=== PATIENT | female | born 1980 | race Caucasian/White ===

== ENCOUNTER 2021-12-19 12:35 | Outpatient (REF) | payer OTHER, SELFPAY ==
[2021-12-20 00:46] LABS: COVID-19 RT-PCR UVMMC Result Negative (Negative)
== END 2021-12-19 12:36 | disposition home or self-care (01) ==
LOC: LBN 12:35
PROVIDERS: PCP Student in an Organized Health Care Education/Training Program; Visit Provider Obstetrics & Gynecology
DX: Z20.822 Contact with and (suspected) exposure to COVID-19 (principal)
CPT/HCPCS: U0003

== ENCOUNTER 2022-01-09 01:54 | Outpatient (CLI) | payer OTHER, SELFPAY | END 2022-01-09 01:55 | disposition home or self-care (01) | LOC: LBO 01:54 | PROVIDERS: PCP Student in an Organized Health Care Education/Training Program; Visit Provider Student in an Organized Health Care Education/Training Program ==

== ENCOUNTER 2022-01-14 01:48 | Outpatient (CLI) | payer OTHER, SELFPAY ==
[2022-01-14 12:51] LABS: HCT 39.4 % (36.0-46.0); HGB 12.7 g/dL (11.2-15.7); MCH 30.3 pg (27.0-33.0); MCHC 32.2 % (32.0-36.0); MPV 10.4 fL (8.0-11.0); Platelet Count 269 10^3/uL (130-400); RBC 4.19 10^6/uL (3.93-5.22); RDW 12.8 % (11.7-14.6); RDW-SD 44.3 fL; WBC 6.34 10^3/uL (4.4-10.8)
[2022-01-14 13:57] LABS: ALT 23 U/L (14-59); AST 14 U/L (15-37); Albumin 4.3 g/dL (3.4-5.0); Alkaline Phosphatase 67 U/L (46-116); Anion Gap 7.3 mmol/L (3-11); BUN 15 mg/dL (7-18); Bilirubin, Total 0.2 mg/dL (0.2-1.0); CO2 29.7 mmol/L (21.0-32.0); CREATININE 0.9 mg/dL (0.55-1.02); Calcium 9.2 mg/dL (8.5-10.1); Calculated LDL 125 mg/dL (<100); Chloride 103 mmol/L (98-107); Cholesterol 200 mg/dL (<200); Glucose 98 mg/dL (74-106); HDL Cholesterol 58 mg/dL (40-60); Potassium 4.2 mmol/L (3.5-5.1); Sodium 140 mmol/L (136-145); TSH (W/Ref FT4) 1.46 uIU/mL (0.36-3.74); Total Protein 7.3 g/dL (6.4-8.2); Triglyceride 89 mg/dL (<150)
== END 2022-01-14 01:49 | disposition home or self-care (01) ==
LOC: LBO 01:48
PROVIDERS: PCP Student in an Organized Health Care Education/Training Program; Visit Provider Student in an Organized Health Care Education/Training Program
DX: D64.9 Anemia, unspecified (principal); E86.0 Dehydration; Z13.220 Encounter for screening for lipoid disorders; Z83.49 Family history of other endocrine, nutritional and metabolic diseases
CPT/HCPCS: 36415; 80053; 80061; 85027; 84443

== ENCOUNTER 2022-01-23 00:14 | Outpatient (CLI) | payer OTHER, SELFPAY ==
--- NOTE | 2022-01-23 07:45 | DI.MAMMO_ITS ---
Exam(s) MAMMO SCREENING EXAM: MAMMO SCREENING CLINICAL HISTORY: screening,z12.39, TECHNIQUE: Mammograms were interpreted according to the usual protocol including computer analysis w [employer] CAD system, tomosynthesis and C-view imaging. COMPARISON: None. Baseline examination. FINDINGS: The breasts are composed of scattered fibroglandular densities, Breast Density category B. No suspicious masses or suspicious microcalcifications are seen. No skin thickening or abnormal axillary lymph nodes are seen. IMPRESSION: BI-RADS Category 1, Negative mammogram Yearly screening mammography is recommended. Breast Density - Category B, scattered fibroglandular densities. A negative radiographic report should not delay biopsy if a dominant or clinically suspicious mass is present. Up to ten percent of cancers are not identified on mammography. A negative report may reinforce clinical impression. Adenosis and dense breasts may obscure an underlying neoplasm. False positive reports average 6 to 10%. Patient will receive a letter notifying them of these results.
== END 2022-01-23 00:34 ==
PROVIDERS: PCP Student in an Organized Health Care Education/Training Program; Visit Provider Student in an Organized Health Care Education/Training Program
DX: Z12.31 Encounter for screening mammogram for malignant neoplasm of breast (principal)
CPT/HCPCS: 77063; 77067

== ENCOUNTER 2022-06-07 10:49 | Outpatient (REF) | payer OTHER, SELFPAY ==
[2022-06-07 09:43] LABS: Source Nasal/Nares
[2022-06-07 10:41] LABS: COVID-19 PCR Negative (Negative)
== END 2022-06-07 10:50 | disposition home or self-care (01) ==
LOC: LBN 10:49
PROVIDERS: PCP Student in an Organized Health Care Education/Training Program; Visit Provider Obstetrics & Gynecology
DX: Z20.822 Contact with and (suspected) exposure to COVID-19 (principal)
CPT/HCPCS: 87635

== ENCOUNTER 2022-07-03 08:17 | Outpatient (CLI) | payer OTHER, SELFPAY ==
[2022-07-03 08:25] LABS: Source Nasal/Nares
[2022-07-03 09:21] LABS: COVID-19 PCR Negative (Negative)
== END 2022-07-03 08:18 | disposition home or self-care (01) ==
LOC: LBO 08:18
PROVIDERS: PCP Student in an Organized Health Care Education/Training Program; Visit Provider Obstetrics & Gynecology
DX: Z20.822 Contact with and (suspected) exposure to COVID-19 (principal)
CPT/HCPCS: 87635

== ENCOUNTER → 2022-07-10 12:57 | Outpatient (CLI) | payer OTHER, SELFPAY ==
--- NOTE | 2022-07-10 10:00 | DI.RAD_ITS ---
Exam(s) XR SHOULDER LT COMPLETE 2+V EXAM: XR SHOULDER LT COMPLETE 2+V CLINICAL HISTORY: Fall Left Shoulder Injury - PAIN - M25.512 TECHNIQUE: COMPARISON: No exams were available for comparison FINDINGS: Five views were obtained. There is a lucency projected through the body of the scapula which appears to represent a nondisplaced fracture. No additional fracture, no evidence of dislocation. IMPRESSION: RADIATION DOSE DELIVERED: Total DLP
== END ==
PROVIDERS: PCP Student in an Organized Health Care Education/Training Program; Visit Provider Physician Assistant
DX: S42.192A Fracture of other part of scapula, left shoulder, initial encounter for closed fracture (principal); W19.XXXA Unspecified fall, initial encounter
CPT/HCPCS: 73030

== ENCOUNTER 2022-07-31 08:58 | Outpatient (CLI) | payer OTHER, SELFPAY ==
--- NOTE | 2022-07-31 08:30 | DI.RAD_ITS ---
Exam(s) XR SHOULDER LT 1V EXAM: XR SHOULDER LT 1V CLINICAL HISTORY: left shoulder f/u. TECHNIQUE: 2D digital imaging was performed. COMPARISON: CR XR SHOULDER LT COMPLETE 2+V from 07/10/2022 FINDINGS: Single frontal view. No evidence of fracture or dislocation nor diminution of the subacromial space and there are no abnor mal soft tissue calcifications. Bone density is normal. No osseous lesions. No osteophytes. No ob vious degenerative changes in the glenohumeral and AC joints. Ipsilateral clavicle and acromion are intact. Visualized scapula unremarkable. Adjacent ribs unremarkable. Bone density is normal. No osseous lesions. IMPRESSION: No significant radiograph findings on this frontal AP external rotation view of the left shoulder. DATA REPOSITORY: RADIATION DOSE DELIVERED:
== END 2022-07-31 08:59 | disposition home or self-care (01) ==
LOC: DIORS 08:58
PROVIDERS: PCP Student in an Organized Health Care Education/Training Program; Referring Provider Student in an Organized Health Care Education/Training Program; Visit Provider Student in an Organized Health Care Education/Training Program
DX: S42.115D Nondisplaced fracture of body of scapula, left shoulder, subsequent encounter for fracture with routine healing (principal)
CPT/HCPCS: 73020; 73030

== ENCOUNTER 2022-10-09 08:23 | Outpatient (CLI) | payer OTHER, SELFPAY ==
[2022-10-09 09:00] LABS: Source Nasal/Nares
[2022-10-09 10:23] LABS: COVID-19 PCR Negative (Negative)
== END 2022-10-09 08:24 | disposition home or self-care (01) ==
LOC: LBO 08:23
PROVIDERS: PCP Student in an Organized Health Care Education/Training Program; Visit Provider Obstetrics & Gynecology
DX: Z20.822 Contact with and (suspected) exposure to COVID-19 (principal)
CPT/HCPCS: 87635

== ENCOUNTER 2022-11-19 16:21 | Outpatient (REF) | payer OTHER, SELFPAY ==
[2022-11-19 11:01] LABS: COVID-19 PCR Negative (Negative); Influenza A PCR Negative (Negative); Influenza B PCR Negative (Negative); RSV PCR Negative (Negative)
[2022-11-19 11:05] LABS: Source Nasopharynx
== END 2022-11-19 16:22 | disposition home or self-care (01) ==
LOC: LBN 16:21
PROVIDERS: PCP Student in an Organized Health Care Education/Training Program; Visit Provider Obstetrics & Gynecology
DX: Z20.822 Contact with and (suspected) exposure to COVID-19 (principal)
CPT/HCPCS: 87637

== ENCOUNTER 2023-01-20 12:38 | Outpatient (REF) | payer OTHER, SELFPAY ==
--- NOTE | 2023-01-20 12:15 | PAPFT_PTH ---
PATIENT: Fidelina Wise LOC: [facility] U#:[id number] AGE/SX: 42/F ROOM: RE01/20/[address]: Alessia Schulz NP : 1980 BED: DIS: 01/20/2023 SPEC #: [id number] RECD: 01/20/23 17:46 STATUS: BART BARBER #: [id number] YUMI: 01/20/23 12:[address]: Alessia Schulz NP DEPT: [facility] Cytology RECD BY: Mary Cruz ENTERED: 01/20/23 17:46 SP TYPE: PAPFT OTHR DR: Rosa Dasilva, DO Tissues: 1 - CX/ENDOCX FOR PAP SMEARS Procedures: PAP THIN PREP/[facility] Screening HPV DNA PROBE Comments: [id number]
== END 2023-01-20 12:39 | disposition home or self-care (01) ==
LOC: LBN 12:38
PROVIDERS: PCP Student in an Organized Health Care Education/Training Program; Visit Provider Nurse Practitioner Women's Health
DX: Z12.4 Encounter for screening for malignant neoplasm of cervix (principal); Z11.51 Encounter for screening for human papillomavirus (HPV)
CPT/HCPCS: 88142; 87624

== ENCOUNTER 2023-02-07 02:44 | Outpatient (CLI) | payer OTHER, SELFPAY ==
[2023-02-07 08:34] LABS: BUN 13 mg/dL (7-18); CREATININE 0.9 mg/dL (0.55-1.02); Calcium 9.4 mg/dL (8.5-10.1); Calculated LDL 125 mg/dL (<100); Chloride 103 mmol/L (98-107); Cholesterol 200 mg/dL (<200); Estimated GFR 82.37 (mL/min/1.73m2); Glucose 94 mg/dL (74-106); HDL Cholesterol 65 mg/dL (40-60); Sodium 140 mmol/L (136-145); Triglyceride 53 mg/dL (<150)
== END 2023-02-07 02:45 | disposition home or self-care (01) ==
LOC: LBO 02:45
PROVIDERS: PCP Student in an Organized Health Care Education/Training Program; Visit Provider Student in an Organized Health Care Education/Training Program
DX: Z13.220 Encounter for screening for lipoid disorders (principal); E86.0 Dehydration; R63.8 Other symptoms and signs concerning food and fluid intake
CPT/HCPCS: 36415; 80048; 80061

== ENCOUNTER → 2024-01-08 00:31 | Outpatient (CLI) | payer OTHER, SELFPAY ==
--- NOTE | 2024-01-08 | DI.MAMMO_ITS ---
Exam(s) MAMMO SCREENING EXAM: MAMMO SCREENING CLINICAL HISTORY: Z12.39 screening TECHNIQUE: Mammograms were interpreted according to the usual protocol including computer analysis w [employer] CAD system, tomosynthesis and C-view imaging. COMPARISON: 2021 FINDINGS: The breasts are composed of scattered fibroglandular densities, Breast Density category B. No suspicious masses or suspicious microcalcifications are seen. No skin thickening or abnormal axillary lymph nodes are seen. There has been no significant change from prior exams. IMPRESSION: BI-RADS Category 1, Negative mammogram Yearly screening mammography is recommended. Breast Density - Category B, scattered fibroglandular densities. A negative radiographic report should not delay biopsy if a dominant or clinically suspicious mass is present. Up to ten percent of cancers are not identified on mammography. A negative report may reinforce clinical impression. Adenosis and dense breasts may obscure an underlying neoplasm. False positive reports average 6 to 10%. Patient will receive a letter notifying them of these results.
== END ==
PROVIDERS: PCP Student in an Organized Health Care Education/Training Program; Visit Provider Obstetrics & Gynecology Gynecology
DX: Z12.31 Encounter for screening mammogram for malignant neoplasm of breast (principal); R92.323 Mammographic fibroglandular density, bilateral breasts
CPT/HCPCS: 77063; 77067

== ENCOUNTER 2024-06-10 01:03 | Outpatient (CLI) | payer OTHER, SELFPAY ==
[2024-06-10 08:21] LABS: Calculated LDL 130 mg/dL (<100); Cholesterol 211 mg/dL (<200); HDL Cholesterol 72 mg/dL (40-60); TSH (W/Ref FT4) 2.38 uIU/mL (0.36-3.74); Triglyceride 48 mg/dL (<150)
== END 2024-06-10 01:04 | disposition home or self-care (01) ==
LOC: LBO 01:04
PROVIDERS: PCP Student in an Organized Health Care Education/Training Program; Visit Provider Student in an Organized Health Care Education/Training Program
DX: Z13.220 Encounter for screening for lipoid disorders (principal); K90.9 Intestinal malabsorption, unspecified
CPT/HCPCS: 36415; 80061; 82306; 84443

== ENCOUNTER 2025-07-16 09:05 | Outpatient (REF) | payer OTHER, SELFPAY ==
[2025-07-16 10:07] LABS: HCT 37.5 % (36.0-46.0); HGB 12.2 g/dL (11.2-15.7); MCH 29.5 pg (27.0-33.0); MCHC 32.5 % (32.0-36.0); MCV 91 fL (80-95); MPV 10.5 fL (8.0-11.0); Platelet Count 262 10^3/uL (130-400); RBC 4.14 10^6/uL (3.93-5.22); RDW 13.7 % (11.7-14.6); RDW-SD 45.4 fL; WBC 5.66 10^3/uL (4.4-10.8)
[2025-07-16 10:46] LABS: ALT 29 U/L (14-59); AST 16 U/L (15-37); Albumin 4.2 g/dL (3.4-5.0); Alkaline Phosphatase 67 U/L (46-116); Anion Gap 8.5 mmol/L (3-11); BUN 10 mg/dL (7-18); Bilirubin, Total 0.4 mg/dL (0.2-1.0); CO2 29.5 mmol/L (21.0-32.0); Calcium 9.1 mg/dL (8.5-10.1); Calculated LDL 126 mg/dL (<100); Chloride 102 mmol/L (98-107); Cholesterol 204 mg/dL (<200); Estimated GFR 114.15 (mL/min/1.73m2); Glucose 94 mg/dL (74-106); HDL Cholesterol 70 mg/dL (>or=50); Potassium 4.3 mmol/L (3.5-5.1); Sodium 140 mmol/L (136-145); Total Protein 7.4 g/dL (6.4-8.2); Triglyceride 40 mg/dL (<150)
[2025-07-22 16:58] LABS: 25-Hydroxy D Total 38 ng/mL
== END 2025-07-16 09:06 | disposition home or self-care (01) ==
LOC: LBN 09:05
PROVIDERS: Advanced Practice Midwife; PCP Nurse Practitioner Adult Health; Visit Provider Nurse Practitioner Adult Health
DX: R53.83 Other fatigue; Z83.42 Family history of familial hypercholesterolemia; Z86.2 Personal history of diseases of the blood and blood-forming organs and certain disorders involving the immune mechanism; Z13.1 Encounter for screening for diabetes mellitus
CPT/HCPCS: 80053; 80061; 82306; 85027